=== PATIENT | female | born 1935 | race Caucasian/White ===

== ENCOUNTER 2017-06-06 11:18 | Outpatient (CLI) | payer MEDICARE | END 2017-06-06 11:19 | disposition home or self-care (01) | LOC: BICMAMMO 11:18 | PROVIDERS: ATTEND Internal Medicine | DX: Z12.31 Encounter for screening mammogram for malignant neoplasm of breast (principal); Z85.038 Personal history of other malignant neoplasm of large intestine | CPT/HCPCS: 77063; 77067 ==

== ENCOUNTER 2017-10-06 10:27 | Emergency (ER) | payer MEDICARE ==
[2017-10-06 11:29] LABS: Bilirubin Negative (Negative); Blood, Urine Small (Negative); Clarity CLEAR (Clear); Glucose, Urine (Dipstick) Negative (Negative); Leukocyte Trace (Negative); Nitrite Negative (Negative); Protein, Urine (Dipstick) Negative (Neg-Trace); Urobilinogen 0.2 mg/dL (0.2-1.0)
[2017-10-06 11:31] LABS: Anion Gap 12 mmol/L (10-20); BUN (Urea Nitrogen) 16 mg/dL (9.8-20.1); Calc. Creatinine Clearance 0 mL/min (70-130); Calcium 9.4 mg/dL (7.8-10.44); Carbon Dioxide 26 mmol/L (23-31); Chloride 97 mmol/L (98-107); Estimated GFR-MDRD 66; Glucose 129 mg/dL (83-110); Potassium 4.3 mmol/L (3.5-5.1); Sodium 131 mmol/L (136-145)
[2017-10-06 11:38] LABS: Bacteria/HPF 1+ HPF (None Seen); Hyaline Casts/LPF NONE SEEN LPF (0-3 Hyaline); Squamous Epithelial 0-3 HPF (0-3)
== END 2017-10-06 11:43 | disposition home or self-care (01) ==
LOC: ERS 10:27
DX: R33.9 Retention of urine, unspecified (principal); I10 Essential (primary) hypertension; Z79.899 Other long term (current) drug therapy
CPT/HCPCS: 36415; 51701; 80048; 81003; 81015

== ENCOUNTER 2017-12-07 10:51 | Outpatient (CLI) | payer MEDICARE ==
--- NOTE | 2017-12-07 14:02 | RAD ---
LUMBAR SPINE BENDING FOUR VIEWS: History: 82-year-old female with history of low back pain, lumbar radiculopathy. Exam includes standing flexion and extension lateral views. FINDINGS: There is S-shaped scoliosis of the lumbar vertebral column, convex to the left side superiorly and co nvex to the right side inferiorly with extensive multilevel disc osteophytosis and some generalized f acet arthrosis. There is approximately 1 cm of anterolisthesis of L4 on L5 without abnormal translati on between flexion and extension. No fracture of dislocation. No compression injury. No focal bone le santy. IMPRESSION: Spondylosis and scoliosis with approximately 1 cm anterolisthesis of L4 on L5 without significant abn ormal translation between flexion and extension. POS: [facility]
== END 2017-12-07 10:52 | disposition home or self-care (01) ==
LOC: TBSIIMAG 10:51
PROVIDERS: ATTEND Surgery
DX: M54.5 Low back pain (principal); M47.896 Other spondylosis, lumbar region; M41.9 Scoliosis, unspecified; M43.16 Spondylolisthesis, lumbar region
CPT/HCPCS: 72120

== ENCOUNTER 2018-01-09 10:26 | Observation (INO) | payer MEDICARE ==
--- NOTE | 2018-01-09 13:04 | RAD ---
PORTABLE CHEST: HISTORY: The patient is status post multiple falls, chronic back pain. FINDINGS: Heart size appears borderline considering apical lordotic technique. Mediastinal structures were unr emarkable. There are atherosclerotic changes of the aorta. The lungs are clear of infiltrates. The re are arthritic changes of both shoulders. The bones are demineralized. IMPRESSION: Borderline heart size. POS: [facility]
--- NOTE | 2018-01-09 13:05 | RAD ---
AP PELVIS: HISTORY: Fall with back and pelvic pain. FINDINGS: Arthritic changes of the lower lumbar spine are seen. A right hip prosthesis I partially visualized. Bony pelvic ring appears intact. No definite signs of fracture. If there is strong suspicion of a sacral fracture, CT would be recommended. IMPRESSION: No evidence of acute injury. POS: [facility]
[2018-01-09 13:15] LABS: Bilirubin Negative (Negative); Blood, Urine Negative (Negative); Clarity CLOUDY (Clear); Glucose, Urine (Dipstick) Negative (Negative); Leukocyte Large (Negative); Nitrite Negative (Negative); Protein, Urine (Dipstick) Negative (Neg-Trace); Specific Gravity, Urine 1.006 (1.002-1.036); Urobilinogen 0.2 mg/dL (0.2-1.0); pH, Urine 7.5 (5.0-9.0)
--- NOTE | 2018-01-09 13:18 | CT ---
CT OF LUMBAR SPINE PERFORMED WITHOUT CONTRAST ENHANCEMENT: History: Patient fell last week and complains of lower back and buttocks pain and bilateral leg pain. FINDINGS: The bones appear demineralized. There is severe disc narrowing at the L3-4 level. There is a grade I spondylolisthesis of L4 on L5 of approximately 5 mm with associated degenerative facet changes. There is no significant periaortic adenopathy and the visualized portions of the kidneys are unremarkable. Arthritic changes of both SI joints are seen. I do not appreciate any evidence for a sacral fracture. There is some mild scoliotic change to the spine. T11-12: Unremarkable. T12-L1: Unremarkable. L1-2: There is a disc bulge at this level. There may be a small left paracentral protrusion present. There appears to be a mild to moderate degree of canal narrowing. L2-3: Disc bulge, facet and ligamentous hypertrophic changes associated with a moderate degree of can al narrowing. L3-4: Moderately severe canal narrowing with degenerative facet and ligamentous hypertrophic changes in conjunction with disc bulging noted. L4-5: Moderately severe canal stenosis seen related to the degenerative facet and ligamentous hypertr ophic changes. L5-S1: Calcification of the posterior annulus fibers are present. I do not appreciate significant can al or foraminal stenosis. IMPRESSION: 1. No evidence of any acute compression injury. 2. Areas of multilevel canal stenosis as discussed above. POS: [facility]
[2018-01-09 13:19] LABS: Bacteria/HPF Rare-Few HPF (None Seen); Hyaline Casts/LPF 4-6 HYALINE CAST LPF (0-3 Hyaline); RBC/HPF 0-3 HPF (0-3); Squamous Epithelial 0-3 HPF (0-3)
[2018-01-09 13:20] LABS: ALT (SGPT) 17 U/L (8-55); AST (SGOT) 20 U/L (5-34); Albumin 3.9 g/dL (3.4-4.8); Alkaline Phosphatase 76 U/L (40-150); Anion Gap 11 mmol/L (10-20); BUN (Urea Nitrogen) 10 mg/dL (9.8-20.1); Bilirubin, Total 0.6 mg/dL (0.2-1.2); CK (CPK) 132 U/L (29-168); Calc. Creatinine Clearance 0 mL/min (70-130); Calcium 9.2 mg/dL (7.8-10.44); Carbon Dioxide 25 mmol/L (23-31); Chloride 94 mmol/L (98-107); Estimated GFR-MDRD 78; Globulin 3.1 g/dL (2.4-3.5); Glucose 117 mg/dL (83-110); Lipase 12 U/L (8-78); Sodium 126 mmol/L (136-145)
[2018-01-09 13:21] LABS: #Monocytes 0.5 thou/uL (0.11-0.59); %Basophils 0.6 % (0.0-1.0); %Eosinophils 0.7 % (0.0-10.0); %Lymphocytes 17.5 % (21.0-51.0); %Monocytes 8.8 % (0.0-10.0); %Neutrophils 72.4 % (42.0-75.0); Hemoglobin 12.3 g/dL (12.0-16.0); Mean Corpuscular HGB CONC 34.7 g/dL (32.0-36.0); Mean Corpuscular Hemoglobin 32.3 pg (27.0-31.0); Mean Platelet Volume 6.3 fL (7.4-10.4); Platelet Count 258 thou/uL (130-400); RBC Distribution Width 12.4 % (11.5-14.5); White Blood Cell (WBC) Count 5.5 thou/uL (4.8-10.8)
[2018-01-09 13:25] LABS: CKMB 2.4 ng/mL (0-6.6); Troponin I Less than 0.010 ng/mL (< 0.028)
[2018-01-09] MEDS ORDERED: cefTRIAXone\\ROCEPHIN 2 GM VIAL ONE (14:12)
[2018-01-09] MEDS ORDERED: traMADol HCl 50 MG TAB PO PRN (16:22)
[2018-01-09] MEDS ORDERED: hydrALAZINE 20 MG/ML VIAL SLOW IVP PRN (16:22)
[2018-01-09] MEDS ORDERED: Acetaminophen 325 MG TAB PO PRN (16:22)
[2018-01-09] MEDS ORDERED: Mag-Al 1200 mg/1200 mg/30 ML UDCUP PO PRN (16:22)
[2018-01-09 16:31] VITALS: BMI 30.4
[2018-01-09] MEDS: Sodium Chloride 0.9% 1,000 ML IV SCH (17:49)
--- NOTE | 2018-01-09 17:54 | HP ---
PRIMARY CARE PHYSICIAN: Krysta Stone M.D. CHIEF COMPLAINT: Generalized weakness. HISTORY OF PRESENT ILLNESS: Ms. Henry is a very pleasant 82-year-old female that has a history of hy pertension as well as previous history of colon cancer. She was in her usual state of health until a bout a week ago when she had gone to the gym and says that she was walking by the door when somebody opened the door and hit her walker and she fell down hitting her head. She says she was bleeding fro m the head and was hurting bad on her right shoulder, but did not seek medical attention. She says t hat the ENT's had offered to bring her to the ER, but she refused. She says that she went home and t hen basically just laid in bed most of the time. Her son lives with her and says that she only would just get out to go to the kitchen or to the bathroom, but basically was in bed most of the day. She got progressively weaker as the days went by to the point where she was basically just getting into a wheelchair and scooting around and as a result, she came to the emergency room for evaluation. She denies any chest pain or difficulty breathing. No fevers or chills. No nausea, no vomiting, no altagracia rrhea. When she was in the ER, she had a CT scan of the pelvis and lumbar spine, there were no fract ures noted, but she did have significant lumbar disk disease and she was also found to have findings consistent with a urinary tract infection and sodium was low and she is being placed in observation f or that. REVIEW OF SYSTEMS: All systems were reviewed and are negative except for that mentioned in the histo ry of present illness. PAST MEDICAL HISTORY: Significant for hypertension, colon cancer, and polio. PAST SURGICAL HISTORY: She has had right knee surgery, left knee surgery, ovarian cyst, cataract dayna yue, and partial hysterectomy. SOCIAL HISTORY: She has 3 children. Her daughter, Jada Stack, is her medical power of customer orders clerk. uma is a nonsmoker. She occasionally drinks wine. She is and would like to be a FULL CODE. ALLERGIES: CELEBREX. She has bad reactions to MIDAZOLAM, FENTANYL and STEROIDS. FAMILY HISTORY: Significant for colon cancer. CURRENT MEDICATIONS: Include tramadol 50 mg q.6 hours as needed, lisinopril 10 mg daily, Lasix 20 mg twice a day, Claritin 10 mg daily, vitamin D3, multivitamin once a day, and aspirin 81 mg a day. PHYSICAL EXAMINATION: GENERAL: She is alert and oriented. She appears to be in no acute distress. VITAL SIGNS: Blood pressure was 151/87, heart rate 77, respiratory rate of 18, temperature is 97.8. HEENT: Pupils are equal, round, and reactive. Extraocular muscles are intact. Her sclerae are anic teric. Throat: There is no erythema, no exudates. NECK: No adenopathy, no bruits. LUNGS: Clear to auscultation. There is no wheezing, no rales. CARDIOVASCULAR: She had a normal S1, S2. There is no S3 or S4. No murmurs, clicks or rubs. ABDOMEN: Soft, it is nontender, nondistended. Positive for bowel sounds. There is no rebound or gu arding. EXTREMITIES: There is no edema. She did have some varicose veins. NEUROLOGIC: She did have a slight weakness on the left lower extremity, but she is able to lift her leg against resistance. She is able to dorsiflex and plantarflex both feet. LABORATORY DATA: Sodium was 126, potassium 4.0, chloride is 94, CO2 is 25, BUN of 10, creatinine 0.7 2, glucose is 117. White blood cell count 5.5, hemoglobin 12.3, hematocrit is 35.3, platelet count i s 258. ASSESSMENT AND PLAN: 1. This is a pleasant 82-year-old female that presents to the ER with progressive generalized weakne ss. This is likely multifactorial, likely as a result of the fall with an exacerbation of degenerati ve joint disease in the setting of her advanced age as well as urinary tract infection and mild hypon atremia. She will be placed in observation. Urine cultures have already been done in the ER. We wi ll place her on Rocephin IV for the urinary tract infection, pending cultures. 2. For the hyponatremia, place her on saline infusion. However, in review of her records, it appear s as if her sodium tends to run on the lower side as far back as 2012 where we have records never bee n in the normal range and on average it looks to be about 132. 3. Hypertension. We will hold off on her lisinopril for now, treated with p.r.n. hydralazine. This can be restarted in the a.m. 4. Generalized weakness. She will be reassessed in the a.m., but I suspect it is going to take parul ral days to maybe several weeks to bring her back to her baseline. For this reason, we will go ahead and place an inpatient rehabilitation screen.
[2018-01-09] MEDS: HYDROcodone/Acetaminophen 5/325 mg Tablet PO PRN ×2 (20:04→23:36)
[2018-01-10] MEDS: Sodium Chloride 0.9% 1,000 ML IV SCH ×4 (02:05→21:23)
[2018-01-10 05:03] LABS: #Eosinphils 0.1 thou/uL (0.0-0.7); #Monocytes 0.6 thou/uL (0.11-0.59); %Basophils 0.3 % (0.0-1.0); %Eosinophils 2.7 % (0.0-10.0); %Lymphocytes 21.8 % (21.0-51.0); %Monocytes 11.7 % (0.0-10.0); %Neutrophils 63.4 % (42.0-75.0); Hemoglobin 11.3 g/dL (12.0-16.0); Mean Corpuscular HGB CONC 34.7 g/dL (32.0-36.0); Mean Corpuscular Hemoglobin 32.5 pg (27.0-31.0); Mean Corpuscular Volume 93.6 fL (78.0-98.0); Mean Platelet Volume 6.4 fL (7.4-10.4); Platelet Count 230 thou/uL (130-400); RBC Distribution Width 12.6 % (11.5-14.5); Red Blood Cell (RBC) Count 3.49 mill/uL (4.20-5.40); White Blood Cell (WBC) Count 4.7 thou/uL (4.8-10.8)
[2018-01-10 05:24] LABS: Anion Gap 9 mmol/L (10-20); BUN (Urea Nitrogen) 8 mg/dL (9.8-20.1); Calc. Creatinine Clearance 76 mL/min (70-130); Calcium 8.6 mg/dL (7.8-10.44); Carbon Dioxide 25 mmol/L (23-31); Chloride 100 mmol/L (98-107); Estimated GFR-MDRD 84; Glucose 95 mg/dL (83-110); Potassium 3.9 mmol/L (3.5-5.1); Sodium 130 mmol/L (136-145)
[2018-01-10] MEDS: HYDROcodone/Acetaminophen 5/325 mg Tablet PO PRN ×3 (07:57→21:23)
[2018-01-10] MEDS: Enoxaparin Sodium 40 MG/0.4 ML SYRINGE SC SCH (07:59)
[2018-01-10] MEDS ORDERED: hydrALAZINE 25 MG TAB PO SCH (14:00)
[2018-01-10] MEDS: cefTRIAXone\\ROCEPHIN 1 GM in Sodium Chloride 0.9% 100 ML IVPB SCH (14:01)
--- NOTE | 2018-01-10 15:15 | PDOC.PN ---
- Subjective Encounter Start Date: 01/10/18 Encounter Start Time: 15:13 Ms. Henry was seen today in follow-up. She says she is feeling much better. I was in the room when she got up and went to the bedside commode. She needed minimal assistance. - Objective Resuscitation Status: Resuscitation Status FULL:Full Resuscitation MAR Reviewed: Yes Vital Signs & Weight: Vital Signs (12 hours) Temp Pulse Resp BP Pulse Ox 01/10/18 14:00 84 01/10/18 12:03 97.5 F L 84 18 181/83 H 01/10/18 07:18 97.8 F 62 16 169/89 H 97 01/10/18 07:04 97.8 F 64 12 Weight Weight 160 lb 14.4 oz I&O: 01/09/18 01/10/18 01/11/18 06:59 06:59 06:59 Intake Total 1000 Balance 1000 Result Diagrams: 01/10/18 04:36 01/10/18 04:36 Phys Exam - Physical Examination HEENT: PERRLA Respiratory: no wheezing, no rales, no rhonchi, clear to auscultation bilateral Cardiovascular: RRR, no significant murmur, no rub Gastrointestinal: soft, non-tender, no distention, positive bowel sounds Musculoskeletal: no edema Dx/Plan (1) Hyponatremia Code(s): E87.1 - HYPO-OSMOLALITY AND HYPONATREMIA Status: Acute (2) Generalized weakness Code(s): R53.1 - WEAKNESS Status: Acute (3) UTI (urinary tract infection) Status: Acute - Plan * Generalized weakness has improved * Hyponatremia- improved * UTI- continue Rocephin, urine culture results are pending * Continue PT/OT * Anticipate discharge home tomorrow.
[2018-01-10] MEDS: hydrALAZINE 25 MG TAB PO SCH (19:45)
[2018-01-11] MEDS: HYDROcodone/Acetaminophen 5/325 mg Tablet PO PRN ×3 (04:11→17:04)
[2018-01-11] MEDS: Sodium Chloride 0.9% 1,000 ML IV SCH ×2 (04:16→12:14)
[2018-01-11 05:39] LABS: Anion Gap 12 mmol/L (10-20); BUN (Urea Nitrogen) 8 mg/dL (9.8-20.1); Calc. Creatinine Clearance 74 mL/min (70-130); Carbon Dioxide 22 mmol/L (23-31); Chloride 103 mmol/L (98-107); Estimated GFR-MDRD 82; Glucose 102 mg/dL (83-110); Potassium 4.1 mmol/L (3.5-5.1); Sodium 133 mmol/L (136-145)
[2018-01-11] MEDS: hydrALAZINE 25 MG TAB PO SCH ×3 (08:00→20:20)
[2018-01-11] MEDS: Enoxaparin Sodium 40 MG/0.4 ML SYRINGE SC SCH (08:00)
[2018-01-11] MEDS: Loratadine 10 MG TAB PO SCH (08:00)
--- NOTE | 2018-01-11 11:26 | PDOC.PN ---
- Subjective Encounter Start Date: 01/11/18 Encounter Start Time: 11:24 Ms. Henry was seen today in follow-up of Generalized weakness. She feels better. She walked with therapy this morning. - Objective Resuscitation Status: Resuscitation Status FULL:Full Resuscitation MAR Reviewed: Yes Vital Signs & Weight: Vital Signs (12 hours) Temp Pulse Resp BP BP Pulse Ox 01/11/18 08:00 98.1 F 68 18 171/99 H 01/11/18 07:10 98.1 F 68 18 171/99 H 94 L 01/11/18 04:00 97.5 F L 75 16 165/93 H 97 Weight Weight 160 lb 14.4 oz I&O: 01/10/18 01/11/18 01/12/18 06:59 06:59 06:59 Intake Total 1000 3000 Balance 1000 3000 Result Diagrams: 01/10/18 04:36 01/11/18 04:23 Phys Exam - Physical Examination HEENT: PERRLA Respiratory: no wheezing, no rales, no rhonchi, clear to auscultation bilateral Cardiovascular: RRR, no significant murmur, no rub Gastrointestinal: soft, non-tender, no distention, positive bowel sounds Musculoskeletal: no edema Dx/Plan (1) Hyponatremia Code(s): E87.1 - HYPO-OSMOLALITY AND HYPONATREMIA Status: Acute (2) Generalized weakness Code(s): R53.1 - WEAKNESS Status: Acute (3) UTI (urinary tract infection) Status: Acute (4) Hypertension Code(s): I10 - ESSENTIAL (PRIMARY) HYPERTENSION Status: Chronic - Plan * Hyponatremia- serum sodium has improved and the weakness has as well with hydration- will decrease IV fluid rate- and consider stopping fluids tomorrow * UTI- urine culture is positive for E. Coli which is conroy-sensitive- will continue Rocephin today, and then consider transition to oral antibiotics in the next day or two * Generalized weakness- continue PT/OT- I spoke with the Physical Therapist, and he recommends Rehab, as she is still fairly weak, and unstable, and could benefit from some training and strengthening. * HTN- blood pressure is elevated- will start Hydralazine temporarily while in the hospital- ( Lasix and Lisinopril are on hold due to volume depletion)- these can be re-started in a day or so
[2018-01-11] MEDS: cefTRIAXone\\ROCEPHIN 1 GM in Sodium Chloride 0.9% 100 ML IVPB SCH (14:12)
[2018-01-12] MEDS: HYDROcodone/Acetaminophen 5/325 mg Tablet PO PRN ×3 (00:55→19:57)
[2018-01-12 04:47] LABS: Anion Gap 13 mmol/L (10-20); BUN (Urea Nitrogen) 8 mg/dL (9.8-20.1); Calc. Creatinine Clearance 77 mL/min (70-130); Calcium 8.7 mg/dL (7.8-10.44); Carbon Dioxide 21 mmol/L (23-31); Chloride 103 mmol/L (98-107); Estimated GFR-MDRD 86; Glucose 97 mg/dL (83-110); Potassium 3.6 mmol/L (3.5-5.1); Sodium 133 mmol/L (136-145)
[2018-01-12] MEDS: Sodium Chloride 0.9% 1,000 ML IV SCH ×2 (05:00→23:34)
[2018-01-12] MEDS: Loratadine 10 MG TAB PO SCH (08:14)
[2018-01-12] MEDS: hydrALAZINE 25 MG TAB PO SCH ×3 (08:16→19:57)
[2018-01-12] MEDS: Enoxaparin Sodium 40 MG/0.4 ML SYRINGE SC SCH (08:17)
[2018-01-12] MEDS ORDERED: Bisacodyl 5 MG TAB PO PRN (08:55)
[2018-01-12] MEDS ORDERED: Bisacodyl 5 MG TAB PO SCH (09:15)
--- NOTE | 2018-01-12 13:50 | PDOC.PN ---
- Subjective Encounter Start Date: 01/12/18 Encounter Start Time: 09:20 Pt seen for followup re: hyponatremia. Feels better. c/o constipation. No fevers or chills. - Objective Resuscitation Status: Resuscitation Status FULL:Full Resuscitation Vital Signs & Weight: Vital Signs (12 hours) Temp Pulse Resp BP BP Pulse Ox 01/12/18 08:16 72 106/80 01/12/18 08:00 97.4 F L 72 16 01/12/18 07:05 97.4 F L 72 16 176/111 H 96 01/12/18 04:39 97.6 F 64 16 172/97 H 100 Weight Weight 160 lb 14.4 oz I&O: 01/11/18 01/12/18 01/13/18 06:59 06:59 06:59 Intake Total 3000 1000 Balance 3000 1000 Result Diagrams: 01/10/18 04:36 01/12/18 03:27 Phys Exam - Physical Examination Constitutional: NAD HEENT: moist MMs Neck: supple Respiratory: clear to auscultation bilateral Cardiovascular: RRR Gastrointestinal: soft Neurological: moves all 4 limbs Psychiatric: normal affect Dx/Plan (1) Hyponatremia Code(s): E87.1 - HYPO-OSMOLALITY AND HYPONATREMIA Status: Acute Comment: Improved, recheck labs. (2) Generalized weakness Code(s): R53.1 - WEAKNESS Status: Acute Comment: Ambulate patient (3) UTI (urinary tract infection) Status: Acute Comment: start macrobid, discontinue ceftriaxone (4) Constipation Code(s): K59.00 - CONSTIPATION, UNSPECIFIED Status: Acute Comment: trial Dulcolax (5) Hypertension Code(s): I10 - ESSENTIAL (PRIMARY) HYPERTENSION Status: Chronic Comment: resume furosemide and lisinopril, monitor vital signs and titrate antihypertensives as needed - Plan * . Review of Systems - Review of Systems Respiratory: negative: Cough, Shortness of Breath, SOB with Excertion, Pleuritic Pain, Wheezing Cardiovascular: negative: chest pain, palpitations, orthopnea, paroxysmal nocturnal dyspnea, edema, light headedness Gastrointestinal: Constipation - Medications/Allergies Allergies/Adverse Reactions: Allergies Allergy/AdvReac Type Severity Reaction Status Date / Time celecoxib Allergy Verified 01/09/18 16:34 fentanyl Allergy Verified 01/09/18 16:34 midazolam Allergy Verified 01/09/18 16:34 Medications: Current Medications Acetaminophen (Tylenol) 650 mg PO Q4H PRN PRN Reason: Headache/Fever or Pain Hydrocodone Bitart/Acetaminophen ([place] 5/325) 1 tab PO Q4H PRN PRN Reason: Moderate Pain (4-6) Last Admin: 01/12/18 14:00 Dose: 1 tab Al Hydroxide/Mg Hydroxide (Maalox) 30 ml PO Q6H PRN PRN Reason: Heartburn or Indigestion Aspirin (Aspirin Chewable) 81 mg PO DAILY [facility] Last Admin: 01/12/18 08:14 Dose: 81 mg Bisacodyl (Dulcolax) 10 mg PO DAILYPRN PRN PRN Reason: Constipation Cholecalciferol (Vitamin D3) 1,000 units PO DAILY [facility] Last Admin: 01/12/18 08:14 Dose: 1,000 units Enoxaparin Sodium (Lovenox) 40 mg SC 0900 [facility] Last Admin: 01/12/18 08:17 Dose: Not Given Furosemide (Lasix) 20 mg PO BID [facility] Hydralazine HCl (Apresoline) 10 mg SLOW IVP Q4H PRN PRN Reason: Systolic BP > 180 Hydralazine HCl (Apresoline) 25 mg PO TID [facility] Last Admin: 01/12/18 14:00 Dose: 25 mg Sodium Chloride (Normal Saline 0.9%) 1,000 mls @ 60 mls/hr IV .[id number] [facility] Last Admin: 01/12/18 05:00 Dose: 1,000 mls Lisinopril (Zestril) 10 mg PO DAILY [facility] Loratadine (Claritin) 10 mg PO DAILY [facility] Last Admin: 01/12/18 08:14 Dose: 10 mg Nitrofurantoin Macrocrystals (Macrobid) 100 mg PO BID [facility] Sodium Chloride (Flush - Normal Saline) 10 ml IVF Q12HR [facility] Last Admin: 01/12/18 08:17 Dose: Not Given Sodium Chloride (Flush - Normal Saline) 10 ml IVF PRN PRN PRN Reason: Saline Flush
[2018-01-12 14:14] LABS: #Eosinphils 0.1 thou/uL (0.0-0.7); #Monocytes 0.5 thou/uL (0.11-0.59); #Neutrophils 3.5 thou/uL (1.40-6.50); %Basophils 0.5 % (0.0-1.0); %Eosinophils 2.7 % (0.0-10.0); %Lymphocytes 18.6 % (21.0-51.0); %Monocytes 9.6 % (0.0-10.0); %Neutrophils 68.6 % (42.0-75.0); Hemoglobin 11.9 g/dL (12.0-16.0); Mean Corpuscular HGB CONC 34.2 g/dL (32.0-36.0); Mean Corpuscular Hemoglobin 32.6 pg (27.0-31.0); Mean Corpuscular Volume 95.1 fL (78.0-98.0); Mean Platelet Volume 6.5 fL (7.4-10.4); Platelet Count 255 thou/uL (130-400); RBC Distribution Width 12.4 % (11.5-14.5); Red Blood Cell (RBC) Count 3.65 mill/uL (4.20-5.40); White Blood Cell (WBC) Count 5.2 thou/uL (4.8-10.8)
[2018-01-12 14:32] LABS: Anion Gap 11 mmol/L (10-20); BUN (Urea Nitrogen) 8 mg/dL (9.8-20.1); Calc. Creatinine Clearance 67 mL/min (70-130); Calcium 8.9 mg/dL (7.8-10.44); Carbon Dioxide 25 mmol/L (23-31); Chloride 100 mmol/L (98-107); Estimated GFR-MDRD 73; Glucose 148 mg/dL (83-110); Potassium 3.9 mmol/L (3.5-5.1); Sodium 132 mmol/L (136-145)
[2018-01-12] MEDS: Furosemide 20 MG TAB PO SCH (19:57)
[2018-01-12] MEDS: Nitrofurantoin Monohyd/M-Cryst 100 MG CAP PO SCH (19:58)
[2018-01-13 05:12] LABS: #Basophils 0.1 thou/uL (0.0-0.2); #Eosinphils 0.2 thou/uL (0.0-0.7); #Monocytes 0.6 thou/uL (0.11-0.59); %Eosinophils 3.7 % (0.0-10.0); %Lymphocytes 21.3 % (21.0-51.0); %Monocytes 11.7 % (0.0-10.0); %Neutrophils 62.2 % (42.0-75.0); Hemoglobin 11.4 g/dL (12.0-16.0); Mean Corpuscular HGB CONC 35.1 g/dL (32.0-36.0); Mean Corpuscular Hemoglobin 32.9 pg (27.0-31.0); Mean Corpuscular Volume 93.6 fL (78.0-98.0); Mean Platelet Volume 6.8 fL (7.4-10.4); Platelet Count 244 thou/uL (130-400); RBC Distribution Width 12.6 % (11.5-14.5); Red Blood Cell (RBC) Count 3.47 mill/uL (4.20-5.40); White Blood Cell (WBC) Count 4.9 thou/uL (4.8-10.8)
[2018-01-13 05:39] LABS: Anion Gap 11 mmol/L (10-20); BUN (Urea Nitrogen) 9 mg/dL (9.8-20.1); Calc. Creatinine Clearance 74 mL/min (70-130); Calcium 8.8 mg/dL (7.8-10.44); Carbon Dioxide 23 mmol/L (23-31); Chloride 101 mmol/L (98-107); Estimated GFR-MDRD 82; Glucose 105 mg/dL (83-110); Potassium 3.5 mmol/L (3.5-5.1); Sodium 131 mmol/L (136-145)
[2018-01-13] MEDS: Enoxaparin Sodium 40 MG/0.4 ML SYRINGE SC SCH (07:40)
[2018-01-13] MEDS: Loratadine 10 MG TAB PO SCH (07:41)
[2018-01-13] MEDS: Lisinopril 10 MG TAB PO SCH (07:41)
[2018-01-13] MEDS: Nitrofurantoin Monohyd/M-Cryst 100 MG CAP PO SCH ×2 (07:41→21:02)
[2018-01-13] MEDS: Furosemide 20 MG TAB PO SCH ×2 (07:42→21:02)
[2018-01-13] MEDS: hydrALAZINE 25 MG TAB PO SCH ×3 (07:42→21:01)
[2018-01-13] MEDS: HYDROcodone/Acetaminophen 5/325 mg Tablet PO PRN ×3 (09:16→18:56)
--- NOTE | 2018-01-13 13:23 | PDOC.PN ---
- Subjective Encounter Start Date: 01/13/18 Encounter Start Time: 09:00 Pt sen for followup re: hyponatremia. feels better. No chest pain, fever or shortness of breath. - Objective Resuscitation Status: Resuscitation Status FULL:Full Resuscitation MAR Reviewed: Yes Vital Signs & Weight: Vital Signs (12 hours) Temp Pulse Resp BP BP BP Pulse Ox 01/13/18 08:19 97.8 F 66 16 171/97 H 97 01/13/18 08:00 97.8 F 66 16 01/13/18 07:42 75 01/13/18 07:41 164/95 H 01/13/18 04:21 98.2 F 75 16 164/95 H 93 L Weight Weight 160 lb 14.4 oz I&O: 01/12/18 01/13/18 01/14/18 06:59 06:59 06:59 Intake Total 1000 1200 Balance 1000 1200 Result Diagrams: 01/13/18 04:05 01/13/18 04:05 Dx/Plan (1) Hyponatremia Code(s): E87.1 - HYPO-OSMOLALITY AND HYPONATREMIA Status: Acute Comment: Improved, sodium 131 today (2) Generalized weakness Code(s): R53.1 - WEAKNESS Status: Acute Comment: mobilize patient (3) UTI (urinary tract infection) Status: Acute Comment: continue macrobid (4) Hypertension Code(s): I10 - ESSENTIAL (PRIMARY) HYPERTENSION Status: Chronic Comment: monitor vital signs and titrate antihypertensives as needed (5) Constipation Code(s): K59.00 - CONSTIPATION, UNSPECIFIED Status: Resolved - Plan * . Review of Systems - Review of Systems Cardiovascular: negative: chest pain, palpitations, orthopnea, paroxysmal nocturnal dyspnea, edema, light headedness Gastrointestinal: negative: Nausea, Abdominal Pain, Constipation, Melena, Hematochezia - Medications/Allergies Allergies/Adverse Reactions: Allergies Allergy/AdvReac Type Severity Reaction Status Date / Time celecoxib Allergy Verified 01/09/18 16:34 fentanyl Allergy Verified 01/09/18 16:34 midazolam Allergy Verified 01/09/18 16:34 Medications: Current Medications Acetaminophen (Tylenol) 650 mg PO Q4H PRN PRN Reason: Headache/Fever or Pain Hydrocodone Bitart/Acetaminophen ([place] 5/325) 1 tab PO Q4H PRN PRN Reason: Moderate Pain (4-6) Last Admin: 01/13/18 09:16 Dose: 1 tab Al Hydroxide/Mg Hydroxide (Maalox) 30 ml PO Q6H PRN PRN Reason: Heartburn or Indigestion Aspirin (Aspirin Chewable) 81 mg PO DAILY [facility] Last Admin: 01/13/18 07:42 Dose: 81 mg Bisacodyl (Dulcolax) 10 mg PO DAILYPRN PRN PRN Reason: Constipation Cholecalciferol (Vitamin D3) 1,000 units PO DAILY [facility] Last Admin: 01/13/18 07:41 Dose: 1,000 units Enoxaparin Sodium (Lovenox) 40 mg SC 0900 [facility] Last Admin: 01/13/18 07:40 Dose: 40 mg Furosemide (Lasix) 20 mg PO BID [facility] Last Admin: 01/13/18 07:42 Dose: 20 mg Hydralazine HCl (Apresoline) 10 mg SLOW IVP Q4H PRN PRN Reason: Systolic BP > 180 Hydralazine HCl (Apresoline) 25 mg PO TID [facility] Last Admin: 01/13/18 07:42 Dose: 25 mg Sodium Chloride (Normal Saline 0.9%) 1,000 mls @ 60 mls/hr IV .[id number] [facility] Last Admin: 01/12/18 23:34 Dose: 1,000 mls Lisinopril (Zestril) 10 mg PO DAILY [facility] Last Admin: 01/13/18 07:41 Dose: 10 mg Loratadine (Claritin) 10 mg PO DAILY [facility] Last Admin: 01/13/18 07:41 Dose: 10 mg Nitrofurantoin Macrocrystals (Macrobid) 100 mg PO BID [facility] Last Admin: 01/13/18 07:41 Dose: 100 mg Sodium Chloride (Flush - Normal Saline) 10 ml IVF Q12HR [facility] Last Admin: 01/13/18 07:42 Dose: Not Given Sodium Chloride (Flush - Normal Saline) 10 ml IVF PRN PRN PRN Reason: Saline Flush
[2018-01-13] MEDS: Sodium Chloride 0.9% 1,000 ML IV SCH (14:21)
[2018-01-14] MEDS: HYDROcodone/Acetaminophen 5/325 mg Tablet PO PRN ×3 (00:38→19:37)
[2018-01-14 05:07] LABS: #Eosinphils 0.2 thou/uL (0.0-0.7); #Lymphocytes 1.3 thou/uL (1.20-3.40); #Monocytes 0.5 thou/uL (0.11-0.59); %Basophils 0.9 % (0.0-1.0); %Eosinophils 3.1 % (0.0-10.0); %Lymphocytes 26.3 % (21.0-51.0); %Monocytes 10.8 % (0.0-10.0); Hemoglobin 10.8 g/dL (12.0-16.0); Mean Corpuscular HGB CONC 33.8 g/dL (32.0-36.0); Mean Corpuscular Hemoglobin 31.5 pg (27.0-31.0); Mean Corpuscular Volume 93.4 fL (78.0-98.0); Mean Platelet Volume 6.3 fL (7.4-10.4); Platelet Count 242 thou/uL (130-400); RBC Distribution Width 12.4 % (11.5-14.5); Red Blood Cell (RBC) Count 3.44 mill/uL (4.20-5.40); White Blood Cell (WBC) Count 5.1 thou/uL (4.8-10.8)
[2018-01-14 05:24] LABS: Anion Gap 11 mmol/L (10-20); BUN (Urea Nitrogen) 12 mg/dL (9.8-20.1); Calc. Creatinine Clearance 71 mL/min (70-130); Calcium 8.9 mg/dL (7.8-10.44); Carbon Dioxide 26 mmol/L (23-31); Chloride 102 mmol/L (98-107); Estimated GFR-MDRD 78; Glucose 103 mg/dL (83-110); Potassium 3.6 mmol/L (3.5-5.1); Sodium 135 mmol/L (136-145)
[2018-01-14] MEDS: Sodium Chloride 0.9% 1,000 ML IV SCH (06:24)
[2018-01-14] MEDS: hydrALAZINE 25 MG TAB PO SCH ×3 (08:23→20:44)
[2018-01-14] MEDS: Furosemide 20 MG TAB PO SCH ×2 (08:23→20:41)
[2018-01-14] MEDS: Loratadine 10 MG TAB PO SCH (08:23)
[2018-01-14] MEDS: Lisinopril 10 MG TAB PO SCH (08:23)
[2018-01-14] MEDS: Enoxaparin Sodium 40 MG/0.4 ML SYRINGE SC SCH (08:24)
[2018-01-14] MEDS: Nitrofurantoin Monohyd/M-Cryst 100 MG CAP PO SCH ×2 (08:32→20:48)
--- NOTE | 2018-01-14 13:24 | PDOC.PN ---
- Subjective Encounter Start Date: 01/14/18 Encounter Start Time: 08:00 Pt seen for followup re: hyponatremia. c/o neuropathic pain, no other complaints. - Objective Resuscitation Status: Resuscitation Status FULL:Full Resuscitation MAR Reviewed: Yes Vital Signs & Weight: Vital Signs (12 hours) Temp Pulse Resp BP BP BP Pulse Ox 01/14/18 11:16 97.7 F 70 18 169/93 H 96 01/14/18 11:13 97.7 F 70 18 169/93 H 96 01/14/18 08:36 97.6 F 73 18 01/14/18 08:23 60 176/91 H 01/14/18 08:05 97.5 F L 57 L 16 176/91 H 96 01/14/18 04:10 97.6 F 73 18 167/78 H 95 Weight Weight 160 lb 14.4 oz I&O: 01/13/18 01/14/18 01/15/18 06:59 06:59 06:59 Intake Total 1200 1200 Balance 1200 1200 Result Diagrams: 01/14/18 04:46 01/14/18 04:46 Additional Labs: labs reviewed by me Phys Exam - Physical Examination Constitutional: NAD HEENT: moist MMs Neck: supple Respiratory: clear to auscultation bilateral Cardiovascular: RRR Gastrointestinal: soft Neurological: moves all 4 limbs Psychiatric: normal affect Dx/Plan (1) Hyponatremia Code(s): E87.1 - HYPO-OSMOLALITY AND HYPONATREMIA Status: Acute Comment: almost resolved, sodium 135 today (2) Generalized weakness Code(s): R53.1 - WEAKNESS Status: Acute Comment: pt awaiting insurance authorization for inpatient rehab for physical deconditioning (3) UTI (urinary tract infection) Status: Acute Comment: continue macrobid (4) Hypertension Code(s): I10 - ESSENTIAL (PRIMARY) HYPERTENSION Status: Chronic Comment: BP still high, start amlodipine (5) Constipation Code(s): K59.00 - CONSTIPATION, UNSPECIFIED Status: Resolved - Plan continue antibiotics, PT/OT, out of bed/ambulate * . Trial gabapentin for neuropathic pain, benefits, risks and side effects discussed with patient Review of Systems - Review of Systems Respiratory: negative: Cough, Dry, Shortness of Breath, Hemoptysis, SOB with Excertion, Pleuritic Pain, Sputum, Wheezing Cardiovascular: negative: chest pain, palpitations, orthopnea, paroxysmal nocturnal dyspnea, edema, light headedness - Medications/Allergies Allergies/Adverse Reactions: Allergies Allergy/AdvReac Type Severity Reaction Status Date / Time celecoxib Allergy Verified 01/09/18 16:34 fentanyl Allergy Verified 01/09/18 16:34 midazolam Allergy Verified 01/09/18 16:34 Medications: Current Medications Acetaminophen (Tylenol) 650 mg PO Q4H PRN PRN Reason: Headache/Fever or Pain Hydrocodone Bitart/Acetaminophen ([place] 5/325) 1 tab PO Q4H PRN PRN Reason: Moderate Pain (4-6) Last Admin: 01/14/18 06:47 Dose: 1 tab Al Hydroxide/Mg Hydroxide (Maalox) 30 ml PO Q6H PRN PRN Reason: Heartburn or Indigestion Aspirin (Aspirin Chewable) 81 mg PO DAILY [facility] Last Admin: 01/14/18 08:23 Dose: 81 mg Bisacodyl (Dulcolax) 10 mg PO DAILYPRN PRN PRN Reason: Constipation Cholecalciferol (Vitamin D3) 1,000 units PO DAILY [facility] Last Admin: 01/14/18 08:23 Dose: 1,000 units Enoxaparin Sodium (Lovenox) 40 mg SC 0900 [facility] Last Admin: 01/14/18 08:24 Dose: 40 mg Furosemide (Lasix) 20 mg PO BID [facility] Last Admin: 01/14/18 08:23 Dose: 20 mg Gabapentin (Neurontin) 100 mg PO HS [facility] Hydralazine HCl (Apresoline) 10 mg SLOW IVP Q4H PRN PRN Reason: Systolic BP > 180 Hydralazine HCl (Apresoline) 25 mg PO TID [facility] Last Admin: 01/14/18 08:23 Dose: 25 mg Sodium Chloride (Normal Saline 0.9%) 1,000 mls @ 60 mls/hr IV .[id number] [facility] Last Admin: 01/14/18 06:24 Dose: 1,000 mls Lisinopril (Zestril) 10 mg PO DAILY [facility] Last Admin: 01/14/18 08:23 Dose: 10 mg Loratadine (Claritin) 10 mg PO DAILY [facility] Last Admin: 01/14/18 08:23 Dose: 10 mg Nitrofurantoin Macrocrystals (Macrobid) 100 mg PO BID [facility] Last Admin: 01/14/18 08:32 Dose: 100 mg Sodium Chloride (Flush - Normal Saline) 10 ml IVF Q12HR [facility] Last Admin: 01/14/18 08:25 Dose: Not Given Sodium Chloride (Flush - Normal Saline) 10 ml IVF PRN PRN PRN Reason: Saline Flush
[2018-01-14] MEDS: Gabapentin 100 MG CAP PO SCH (20:41)
[2018-01-15] MEDS: Sodium Chloride 0.9% 1,000 ML IV SCH (00:20)
[2018-01-15] MEDS: HYDROcodone/Acetaminophen 5/325 mg Tablet PO PRN ×3 (05:54→20:28)
[2018-01-15] MEDS: Furosemide 20 MG TAB PO SCH ×2 (09:33→20:27)
[2018-01-15] MEDS: Nitrofurantoin Monohyd/M-Cryst 100 MG CAP PO SCH ×2 (09:33→20:30)
[2018-01-15] MEDS: Lisinopril 10 MG TAB PO SCH (09:33)
[2018-01-15] MEDS: hydrALAZINE 25 MG TAB PO SCH ×3 (09:33→20:28)
[2018-01-15] MEDS: Loratadine 10 MG TAB PO SCH (09:33)
[2018-01-15] MEDS: Enoxaparin Sodium 40 MG/0.4 ML SYRINGE SC SCH (09:34)
--- NOTE | 2018-01-15 18:09 | PDOC.PN ---
- Subjective Encounter Start Date: 01/15/18 Encounter Start Time: 08:30 Pt seen for followup re: hyponatremia. No complaints today. Slept well, gabapentin helped with pain. - Objective Resuscitation Status: Resuscitation Status FULL:Full Resuscitation MAR Reviewed: Yes Vital Signs & Weight: Vital Signs (12 hours) Temp Pulse Resp BP BP BP Pulse Ox 01/15/18 14:27 149/96 H 01/15/18 14:26 68 149/96 H 01/15/18 13:20 97.2 F L 68 18 155/99 H 96 01/15/18 13:19 97.2 F L 68 18 155/99 H 96 01/15/18 09:33 68 146/83 H 01/15/18 07:56 98.3 F 68 16 146/83 H 96 01/15/18 07:44 98.2 F 77 18 Weight Weight 160 lb 14.4 oz I&O: 01/14/18 01/15/18 01/16/18 06:59 06:59 06:59 Intake Total 1200 2000 Output Total 1600 Balance 1200 400 Result Diagrams: 01/14/18 04:46 01/14/18 04:46 Additional Labs: Labs reviewed by me Phys Exam - Physical Examination Obese HEENT: sclera anicteric Neck: full ROM Respiratory: clear to auscultation bilateral Cardiovascular: RRR Gastrointestinal: soft, non-tender Neurological: moves all 4 limbs Psychiatric: normal affect Dx/Plan (1) Hyponatremia Code(s): E87.1 - HYPO-OSMOLALITY AND HYPONATREMIA Status: Acute Comment: significantly improved (2) Generalized weakness Code(s): R53.1 - WEAKNESS Status: Acute Comment: pt awaiting insurance authorization for inpatient rehab (3) UTI (urinary tract infection) Status: Acute Comment: on macrobid (4) Hypertension Code(s): I10 - ESSENTIAL (PRIMARY) HYPERTENSION Status: Chronic Comment: Improved with amlodipine addition (5) Constipation Code(s): K59.00 - CONSTIPATION, UNSPECIFIED Status: Resolved - Plan * . Review of Systems - Review of Systems Constitutional: negative: fever, chills, sweats, weakness, malaise Respiratory: negative: Cough, Shortness of Breath, SOB with Excertion, Pleuritic Pain, Wheezing - Medications/Allergies Allergies/Adverse Reactions: Allergies Allergy/AdvReac Type Severity Reaction Status Date / Time celecoxib Allergy Verified 01/09/18 16:34 fentanyl Allergy Verified 01/09/18 16:34 midazolam Allergy Verified 01/09/18 16:34 Medications: Current Medications Acetaminophen (Tylenol) 650 mg PO Q4H PRN PRN Reason: Headache/Fever or Pain Hydrocodone Bitart/Acetaminophen (Hutchinson 5/325) 1 tab PO Q4H PRN PRN Reason: Moderate Pain (4-6) Last Admin: 01/15/18 14:25 Dose: 1 tab Al Hydroxide/Mg Hydroxide (Maalox) 30 ml PO Q6H PRN PRN Reason: Heartburn or Indigestion Aspirin (Aspirin Chewable) 81 mg PO DAILY [facility] Last Admin: 01/15/18 09:33 Dose: 81 mg Bisacodyl (Dulcolax) 10 mg PO DAILYPRN PRN PRN Reason: Constipation Cholecalciferol (Vitamin D3) 1,000 units PO DAILY [facility] Last Admin: 01/15/18 09:33 Dose: 1,000 units Enoxaparin Sodium (Lovenox) 40 mg SC 0900 [facility] Last Admin: 01/15/18 09:34 Dose: 40 mg Furosemide (Lasix) 20 mg PO BID [facility] Last Admin: 01/15/18 09:33 Dose: 20 mg Gabapentin (Neurontin) 100 mg PO HS [facility] Last Admin: 01/14/18 20:41 Dose: 100 mg Hydralazine HCl (Apresoline) 10 mg SLOW IVP Q4H PRN PRN Reason: Systolic BP > 180 Hydralazine HCl (Apresoline) 25 mg PO TID [facility] Last Admin: 01/15/18 14:26 Dose: 25 mg Lisinopril (Zestril) 10 mg PO DAILY [facility] Last Admin: 01/15/18 09:33 Dose: 10 mg Loratadine (Claritin) 10 mg PO DAILY [facility] Last Admin: 01/15/18 09:33 Dose: 10 mg Nitrofurantoin Macrocrystals (Macrobid) 100 mg PO BID [facility] Last Admin: 01/15/18 09:33 Dose: 100 mg Sodium Chloride (Flush - Normal Saline) 10 ml IVF Q12HR [facility] Last Admin: 01/15/18 09:34 Dose: Not Given Sodium Chloride (Flush - Normal Saline) 10 ml IVF PRN PRN PRN Reason: Saline Flush
[2018-01-15] MEDS: Gabapentin 100 MG CAP PO SCH (20:28)
[2018-01-16] MEDS: HYDROcodone/Acetaminophen 5/325 mg Tablet PO PRN ×2 (06:45→11:39)
[2018-01-16] MEDS: hydrALAZINE 25 MG TAB PO SCH (08:43)
[2018-01-16] MEDS: Nitrofurantoin Monohyd/M-Cryst 100 MG CAP PO SCH (08:44)
[2018-01-16] MEDS: Furosemide 20 MG TAB PO SCH (08:44)
[2018-01-16] MEDS: Loratadine 10 MG TAB PO SCH (08:44)
[2018-01-16] MEDS: Lisinopril 10 MG TAB PO SCH (08:44)
[2018-01-16] MEDS: Enoxaparin Sodium 40 MG/0.4 ML SYRINGE SC SCH (08:53)
[2018-01-16 15:20] VITALS: BP 126/82; TEMP 97.2
--- NOTE | 2018-01-16 23:08 | DIS ---
DATE OF ADMISSION: 01/09/2018 DATE OF DISCHARGE: 01/16/2018 PRIMARY CARE PROVIDER: Krysta Stone MD DISCHARGE DIAGNOSES: 1. Urinary tract infection. 2. Weakness. 3. Hyponatremia. CONDITION OF PATIENT ON THE DAY OF DISCHARGE: Stable. I assessed Ms. Henry on the day of discharge. She denies any chest pain or shortness of breath. Vital signs are stable. S1 and S2 are heard, re gular. Lungs are clear to auscultation bilaterally. DISCHARGE MEDICATIONS: Macrobid 100 mg 2 times a day for 4 more days, gabapentin 100 mg at bedtime, hydralazine 25 mg 3 times a day, Claritin 10 mg daily, lisinopril 10 mg daily, Lasix 20 mg 2 times a day, vitamin D3 1000 units daily, and aspirin 81 mg daily. HOSPITAL COURSE: Ms. Henry is a pleasant 82-year-old lady who was admitted to [facility] on 01/09/2018 for generalized weakness and hyponatremia. Please refer to Edenilson's histor y and physical note dated 01/09/2018 for further details. She received intravenous fluids. She was also found to have urinary tract infection with Escherichia coli, which was pansensitive. She was in itially treated with ceftriaxone, subsequently stepped down to Macrobid. Her sodium improved to 135 by 01/14/2018. She was seen by rehabilitation services. She was recommended inpatient rehabilitation versus [facility]. She was declined by her insurance for inpatient rehabilitation. Patient did not want to go to [facility]. She wanted to go home with home health. Accordingly, naz becerra is working with her to discharge her home with home health. On 01/14, she had sodium 135, potassium 3.6, creatinine 0.72, white count 5100, hemoglobin 10.8, and platelet count 242,000. She also had neuropathic pain and gabapentin was initiated. She reports that gabapentin is helping h er. She is being discharged home on 100 mg at bedtime, gabapentin dose may be titrated based on her response. DISCHARGE DESTINATION: Home. Many thanks for allowing me to participate in your patient's care. Please feel free to contact me wi th any questions or concerns.
== END 2018-01-16 16:27 | disposition home or self-care (01) ==
LOC: ERS 10:26 → T4-A 14:35 → ERS 15:49
PROVIDERS: ADMIT Internal Medicine; ATTEND Internal Medicine
DX: R53.1 Weakness (principal); N39.0 Urinary tract infection, site not specified; B96.20 Unspecified Escherichia coli [E. coli] as the cause of diseases classified elsewhere; E87.1 Hypo-osmolality and hyponatremia; I10 Essential (primary) hypertension; K59.00 Constipation, unspecified; Z79.82 Long term (current) use of aspirin; Z79.899 Other long term (current) drug therapy; Z88.5 Allergy status to narcotic agent; Z88.8 Allergy status to other drugs, medicaments and biological substances
CPT/HCPCS: 71045; 72131; 72170; 80048 ×6; 80053; 82550; 82553; 83690; 84484; 85025 ×5; 87077; 87086; 87186; 96361 ×7; 96365; 96372 ×4; 96375; 97110; 97116 ×6; 97139; 97530; 97535; 99285; G0378 ×2; G8978; G8979; G8987; G8988; 36415; 36416; 81003; 81015; A4216; J0696; J1650; J2270; J7050

== ENCOUNTER 2018-08-02 14:10 | Outpatient (CLI) | payer MEDICARE ==
--- NOTE | 2018-08-02 16:15 | RAD ---
2 VIEWS LUMBOSACRAL SPINE: Date: 08/02/18 COMPARISON: CT lumbar spine dated 01/09/18. HISTORY: Lumbar pain and radiculopathy. FINDINGS: Two views of the lumbosacral spine show Grade I anterolisthesis of L4 on L5. There is intervertebral disc space narrowing throughout the lumbar spine, greatest at L3-4. Severe posterior facet arthrosis is seen in the lower lumbosacral spine. There is scoliotic curvature of the lumbar spine likely secon caitie to degenerative change. IMPRESSION: Severe degenerative changes of the lumbar spine with anterolisthesis of L4 on L5. POS: JOHN
== END 2018-08-02 14:11 | disposition home or self-care (01) ==
LOC: SCSRAD 14:10
PROVIDERS: ATTEND Surgery
DX: M47.26 Other spondylosis with radiculopathy, lumbar region (principal); M43.16 Spondylolisthesis, lumbar region
CPT/HCPCS: 72100

== ENCOUNTER 2018-08-13 06:54 | Outpatient (CLI) | payer MEDICARE ==
--- NOTE | 2018-08-13 13:26 | RAD ---
F4 views of lumbar spine: 08/13/2018 COMPARISON: 08/02/2018 HISTORY: Preoperative patient, lumbar radiculopathy FINDINGS: There is mild upper lumbar spine levoscoliosis and mild mid lumbar spine dextroscoliosis. M oderate degenerative changes of bilateral sacroiliac joints noted, right greater than left. Partially visualized right hip arthroplasty. At L1-2 there is disc space narrowing and right lateral osteophyte formation. At L3-4 there is left l ateral disc space narrowing and degenerative endplate change with lateral osteophytosis. The lateral exam demonstrates disc space narrowing with anterior osteophyte formation at T10-11, T11- 12, T12-L1, and L1-2. Disc space narrowing and degenerative endplate change present at L3-4. Prominent L4-5 and L5-S1 facet hypertrophic change. Anterolisthesis of L4 on L5 measures 8 mm on neutral imaging, 9 mm on flexion i maging, and 7 mm on extension imaging. IMPRESSION: Prominent multilevel degenerative change within the lumbar spine as detailed above.
[2018-08-13 14:01] LABS: Hemoglobin 12.4 g/dL (12.0-16.0); Mean Corpuscular HGB CONC 33.6 g/dL (32.0-36.0); Mean Corpuscular Hemoglobin 31.6 pg (27.0-31.0); Mean Corpuscular Volume 93.9 fL (78.0-98.0); Mean Platelet Volume 6.9 fL (7.4-10.4); Platelet Count 257 thou/uL (130-400); RBC Distribution Width 12.6 % (11.5-14.5); Red Blood Cell (RBC) Count 3.92 mill/uL (4.20-5.40); White Blood Cell (WBC) Count 5.1 thou/uL (4.8-10.8)
[2018-08-13 14:06] LABS: INR-International Normal Ratio 1.1; PTT 30.1 SEC (22.9-36.1); Prothrombin Time 13.9 SEC (12.0-14.7)
[2018-08-13 14:13] LABS: Anion Gap 13 mmol/L (10-20); BUN (Urea Nitrogen) 14 mg/dL (9.8-20.1); Calc. Creatinine Clearance 0 mL/min (70-130); Calcium 9.2 mg/dL (7.8-10.44); Carbon Dioxide 27 mmol/L (23-31); Chloride 92 mmol/L (98-107); Estimated GFR-MDRD 80; Glucose 84 mg/dL (83-110); Potassium 4.6 mmol/L (3.5-5.1); Sodium 127 mmol/L (136-145)
--- NOTE | 2018-08-13 21:27 | EKG ---
Test Reason : Blood Pressure : / mmHG Vent. Rate : 058 BPM Atrial Rate : 058 BPM P-R Int : 210 ms QRS Dur : 096 ms QT Int : 436 ms P-R-T Axes : 058 002 070 degrees QTc Int : 428 ms Sinus bradycardia with 1st degree A-V block Low voltage QRS Cannot rule out Anterior infarct (cited on or before 28-JUN-2013) Abnormal ECG When compared with ECG of 15-APR-2014 12:36, No significant change was found Confirmed by MARY SY, . SVelia (4) on 08/13/2018 9:26:45 PM Referred By: RENETTA Confirmed By:DR. Elizabeth HERNANDEZ MD
== END 2018-08-13 06:55 | disposition home or self-care (01) ==
LOC: LABBT 06:54
PROVIDERS: ATTEND Surgery
DX: Z01.818 Encounter for other preprocedural examination (principal); M48.061 Spinal stenosis, lumbar region without neurogenic claudication; M47.26 Other spondylosis with radiculopathy, lumbar region
CPT/HCPCS: 72110; 80048; 85027; 85610; 85730; 93005; 93010

== ENCOUNTER 2018-08-20 09:37 | Observation (INO) | payer MEDICARE ==
[2018-08-20] MEDS ORDERED: Morphine 2 MG/ML SYRINGE ONE (11:31)
[2018-08-20] MEDS ORDERED: Bacitracin Zinc Ointment 30 gm TUBE ONE (12:49)
[2018-08-20] MEDS ORDERED: Sodium Chloride 0.9% 10 ML ONE (12:49)
[2018-08-20] MEDS ORDERED: Thrombin 5000 UNITS/5 ML VIAL ONE (12:49)
[2018-08-20] MEDS ORDERED: Ondansetron PF 4 MG/2 ML Vial ONE (12:53)
[2018-08-20] MEDS ORDERED: PHENYLEPHRINE-NS 100 MCG/ML 10 ML SYRINGE ONE (12:53)
[2018-08-20] MEDS ORDERED: PROPOFOL 200 MG/20 ML VIAL ONE (12:53)
[2018-08-20] MEDS ORDERED: Lidocaine 1% PF 5 ML VIAL ONE (12:53)
[2018-08-20] MEDS ORDERED: ePHEDrine 50 MG/ML VIAL ONE (12:53)
[2018-08-20] MEDS ORDERED: Rocuronium Bromide 10 MG/ML (10ML VIAL) ONE (12:53)
[2018-08-20] MEDS ORDERED: Glycopyrrolate 0.2 MG/ML 5 ML SYRINGE ONE (12:53)
[2018-08-20] MEDS ORDERED: Ketamine 50 MG/ML (10ML VIAL) ONE (14:20)
[2018-08-20] MEDS ORDERED: HYDROmorphone 2 MG/ML VIAL ONE ×2 (15:46→17:57)
[2018-08-20] MEDS ORDERED: HYDROmorphone 2 MG/ML VIAL SLOW IVP PRN (16:29)
[2018-08-20] MEDS ORDERED: Ondansetron HCl/PF 4 MG/2 ML Vial IVP PRN (16:29)
[2018-08-20] MEDS ORDERED: Promethazine HCl 25 MG/ML VIAL SLOW IVP PRN (16:29)
[2018-08-20] MEDS ORDERED: PACU-Morphine 4MG/ML VIAL SLOW IVP PRN (16:29)
[2018-08-20] MEDS ORDERED: Meperidine HCl/PF 25 MG/ML VIAL SLOW IVP PRN (16:29)
[2018-08-20] MEDS ORDERED: Morphine Sulfate 2 MG/ML SYRINGE SLOW IVP PRN (16:29)
[2018-08-20] MEDS ORDERED: Promethazine HCl 25 MG/ML VIAL IM PRN (16:29)
[2018-08-20] MEDS ORDERED: Acetaminophen 325 MG TAB PO PRN (17:00)
[2018-08-20] MEDS ORDERED: Promethazine HCl 25 MG/ML VIAL IVPB PRN (17:00)
[2018-08-20] MEDS ORDERED: Mag-Al 1200 mg/1200 mg/30 ML UDCUP PO PRN (17:00)
[2018-08-20] MEDS ORDERED: Morphine 4 MG/ML VIAL ONE ×2 (17:23→17:40)
[2018-08-20] MEDS ORDERED: CEFAZOLIN 2 GM in Premix Bag 1 BAG IVPB SCH (18:00)
[2018-08-20] MEDS ORDERED: Promethazine HCl 25 MG/ML VIAL ONE (18:20)
[2018-08-20] MEDS: CEFAZOLIN 2 GM in Premix Bag 1 BAG IVPB SCH (22:12)
[2018-08-20] MEDS: HYDROcodone/Acetaminophen 7.5/325 mg Tablet PO PRN (22:13)
[2018-08-20] MEDS: diphenhydrAMINE 50 MG CAP PO SCH ×4 (22:13→22:23)
[2018-08-20] MEDS: Gabapentin 100 MG CAP PO SCH (22:13)
[2018-08-20] MEDS: Atorvastatin Calcium 40 MG TAB PO SCH (22:13)
[2018-08-20] MEDS: Sodium Chloride 0.9% 1,000 ML IV SCH (22:14)
[2018-08-20 22:35] VITALS: BMI 32.1
[2018-08-20] MEDS: Morphine 2 MG/ML SYRINGE SLOW IVP PRN (23:40)
[2018-08-20] MEDS: Promethazine HCl 12.5 MG in Sodium Chloride 0.9% 50 ML IVPB PRN (23:41)
[2018-08-21] MEDS: Acetaminophen/Codeine 30-300mg Tablet PO PRN ×3 (03:34→18:37)
[2018-08-21] MEDS: CEFAZOLIN 2 GM in Premix Bag 1 BAG IVPB SCH (05:40)
[2018-08-21] MEDS: Sodium Chloride 0.9% 1,000 ML IV SCH ×2 (05:41→19:27)
[2018-08-21] MEDS: Lisinopril 20 MG TAB PO SCH (08:54)
[2018-08-21] MEDS: Loratadine 10 MG TAB PO SCH (08:54)
[2018-08-21] MEDS: Furosemide 20 MG TAB PO SCH (08:54)
[2018-08-21] MEDS ORDERED: Non-Formulary Item 1 EACH (Cetirizine Hcl [Zyrtec] 10 MG) PO SCH (09:00)
--- NOTE | 2018-08-21 09:37 | PRG ---
DATE OF SERVICE: 08/21/2018 DICTATED FOR: Jose Carlos Ross MD SUBJECTIVE: Ms. Henry is now postoperative day #1, having undergone multiple level lumbar laminectomies. She states she is feeling well today. She has had improvement in back pain and does not have any radicular complaints at this time. She has been walking to the bathroom once and is not sure if she feels more steady on her feet at this time. She has good strength in the bilateral lower extremities. PLAN: She maybe discharged later today; however, likely may need one more overnight stay to work with therapies, become more steady on her feet. We will check back on her at lunchtime, but she likely will be here another overnight. Please call with any changes in the patient's neurologic status. Job ID: [id number]
--- NOTE | 2018-08-21 09:48 | PRG ---
DATE OF SERVICE: 08/21/2018 Ms. Henry is doing well, postoperative L3-L5 laminectomy. She states her leg pain has improved compared to before surgery. We will plan to mobilize her more today possible dismissal later today, but she may need more time for recovery given her age of 83. Job ID: [id number]
--- NOTE | 2018-08-21 10:05 | OP ---
DATE OF PROCEDURE: 08/20/2018 FIRMWARE SOFTWARE VERIFICATION ENGINEER: Francisco Rivera PA-C PREOPERATIVE DIAGNOSIS: Lumbar stenosis with low back and leg pain. POSTOPERATIVE DIAGNOSIS: Lumbar stenosis with low back and leg pain. PROCEDURES PERFORMED: L3-L4 and L4-L5 laminectomies, partial facetectomies, and foraminotomies. DESCRIPTION OF PROCEDURE: After informed consent was obtained from the patient, the patient was brought to the OR. Proper patient, pause, and identification were carried out. She was placed under excellent general endotracheal anesthesia and positioned prone on the OR table. All appropriate points were padded. We identified the L3 through L5 dorsal spines, and a linear kristin was made. This area was sterilely cleansed, prepared, and draped. Proper patient, pause, and identification were carried out. The wound was then opened with a combination of sharp, monopolar, and blunt dissection. We exposed the L3, L4, and L5 segments, and localization film confirmed area of interest. We then performed L3, L4, and L5 laminectomies, partial facetectomies, and foraminotomies. There was a small area of partial thickness opening and the dura, but no evidence of CSF leak. We had excellent decompression of common dural tube. Copious irrigation occurred throughout as did maximizing hemostasis. The wound was then closed in anatomic layers following the use of DuraSeal and sprinkling of vancomycin powder. The patient then emerged from anesthesia. Job ID: [id number]
[2018-08-21] MEDS: tiZANidine HCl 4 MG TAB PO PRN ×2 (14:11→20:52)
[2018-08-21] MEDS: traMADol HCl 50 MG TAB PO PRN (14:11)
[2018-08-21] MEDS: Atorvastatin Calcium 40 MG TAB PO SCH (20:48)
[2018-08-21] MEDS: Gabapentin 100 MG CAP PO SCH (20:48)
[2018-08-21] MEDS: diphenhydrAMINE 50 MG CAP PO SCH (20:49)
[2018-08-22] MEDS: Acetaminophen/Codeine 30-300mg Tablet PO PRN (01:17)
[2018-08-22] MEDS: tiZANidine HCl 4 MG TAB PO PRN ×3 (04:39→21:03)
[2018-08-22] MEDS: HYDROcodone/Acetaminophen 7.5/325 mg Tablet PO PRN ×2 (09:13→17:31)
[2018-08-22] MEDS: Loratadine 10 MG TAB PO SCH (09:13)
[2018-08-22] MEDS: Furosemide 20 MG TAB PO SCH (09:14)
[2018-08-22] MEDS: Lisinopril 20 MG TAB PO SCH (09:14)
[2018-08-22] MEDS: Sodium Chloride 0.9% 1,000 ML IV SCH ×2 (09:14→22:24)
--- NOTE | 2018-08-22 11:29 | PRG ---
DATE OF SERVICE: 08/22/2018 This is Francisco Rivera PA-C dictating a report for Jose Carlos Ross MD. Postoperative recheck. Calr is now postoperative day #2 having undergone multilevel lumbar laminectomies. She complains of significant incisional back pain, but otherwise has some aching into the legs that is nonradicular. She states her leg pain still remains improved compared to her preoperative leg pain. She has been walking to the bathroom with a walker, but otherwise her mobility has been limited secondary to pain. She also has low oxygen status and therefore, we will attempt to limit her narcotics. I have placed a therapy consult as well as inpatient rehab consult as she may benefit from this. Hopefully, she can discharge tomorrow, but we must work on adequate pain control. She remains with good strength in the bilateral lower extremities. Please call with any changes in patient's neurologic status. Job ID: [id number]
[2018-08-22] MEDS: traMADol HCl 50 MG TAB PO PRN ×2 (11:51→21:04)
[2018-08-22] MEDS: diphenhydrAMINE 50 MG CAP PO SCH (21:03)
[2018-08-22] MEDS: Gabapentin 100 MG CAP PO SCH (21:03)
[2018-08-22] MEDS: Atorvastatin Calcium 40 MG TAB PO SCH (21:03)
[2018-08-23] MEDS: HYDROcodone/Acetaminophen 7.5/325 mg Tablet PO PRN ×4 (01:06→23:04)
[2018-08-23] MEDS: traMADol HCl 50 MG TAB PO PRN ×2 (04:01→18:08)
[2018-08-23] MEDS: tiZANidine HCl 4 MG TAB PO PRN ×3 (04:01→20:38)
[2018-08-23] MEDS: Loratadine 10 MG TAB PO SCH (09:19)
[2018-08-23] MEDS: Milk Of Magnesia 30 ML UDCUP PO PRN ×2 (09:19→20:38)
[2018-08-23] MEDS: Lisinopril 20 MG TAB PO SCH (09:19)
[2018-08-23] MEDS: Furosemide 20 MG TAB PO SCH (09:19)
--- NOTE | 2018-08-23 13:18 | PRG ---
DATE OF SERVICE: 08/23/2018 Ms. Henry is postoperative day #3 from lumbar decompression. She states she has had resolution in her leg pain, but as expected incisional pain. We have made arrangements for transfer to rehab and hopefully that will occur today. Job ID: [id number]
[2018-08-23] MEDS: Sodium Chloride 0.9% 1,000 ML IV SCH (14:58)
[2018-08-23] MEDS: Acetaminophen/Codeine 30-300mg Tablet PO PRN (18:07)
[2018-08-23] MEDS: diphenhydrAMINE 50 MG CAP PO SCH (20:38)
[2018-08-23] MEDS: Atorvastatin Calcium 40 MG TAB PO SCH (20:38)
[2018-08-23] MEDS: Gabapentin 100 MG CAP PO SCH (20:38)
[2018-08-24] MEDS: Sodium Chloride 0.9% 1,000 ML IV SCH ×2 (00:05→15:05)
[2018-08-24] MEDS ORDERED: Acetaminophen/Codeine 30-300mg Tablet PO PRN (01:21)
[2018-08-24] MEDS: tiZANidine HCl 4 MG TAB PO PRN ×3 (05:25→20:43)
[2018-08-24] MEDS: HYDROcodone/Acetaminophen 7.5/325 mg Tablet PO PRN (05:25)
[2018-08-24] MEDS ORDERED: Milk Of Magnesia 30 ML UDCUP PO PRN (07:36)
--- NOTE | 2018-08-24 07:57 | PRG ---
DATE OF SERVICE: 08/24/2018 SUBJECTIVE: I saw Elisabeth Henry in her hospital room this morning. Yesterday, she got literature on [facility] and arrangements are being made for her to be transferred there. She is happy with that decision. Ms. Henry had a good night. She was sleeping soundly when I came in the room, but wakes easily. She does not complain of any discomfort in the legs, but her back is sore. I do not see any fevers recorded overnight. Her blood pressures have been in the 140s to 170s. Her neurological function in lower extremities is quite good. Dressing is dry. ASSESSMENT AND PLAN: Ms. Henry has a place to go via transfer today. We will make sure the paperwork is ready for that. Followup arrangements have already been made. I went over wound care and activity restrictions. Job ID: [id number]
[2018-08-24] MEDS ORDERED: Lisinopril 20 MG TAB PO SCH (09:00)
[2018-08-24] MEDS: Furosemide 20 MG TAB PO SCH (09:26)
[2018-08-24] MEDS: Loratadine 10 MG TAB PO SCH (09:26)
[2018-08-24] MEDS: Acetaminophen/Codeine 30-300mg Tablet PO PRN ×3 (09:27→19:04)
[2018-08-24] MEDS: Bisacodyl 10 MG SUPP PR PRN (14:40)
[2018-08-24] MEDS: Gabapentin 100 MG CAP PO SCH (20:43)
[2018-08-24] MEDS: Atorvastatin Calcium 40 MG TAB PO SCH (20:43)
[2018-08-24] MEDS: diphenhydrAMINE 50 MG CAP PO SCH (20:44)
[2018-08-25] MEDS: Morphine 2 MG/ML SYRINGE SLOW IVP PRN (02:38)
[2018-08-25] MEDS: Promethazine HCl 12.5 MG in Sodium Chloride 0.9% 50 ML IVPB PRN (02:47)
[2018-08-25] MEDS: Sodium Chloride 0.9% 1,000 ML IV SCH ×2 (07:08→16:43)
[2018-08-25] MEDS ORDERED: hydrALAZINE 10 MG TAB PO PRN (08:00)
[2018-08-25] MEDS: Loratadine 10 MG TAB PO SCH (09:22)
[2018-08-25] MEDS: Acetaminophen/Codeine 30-300mg Tablet PO PRN ×2 (09:22→16:36)
[2018-08-25] MEDS: tiZANidine HCl 4 MG TAB PO PRN ×2 (09:22→16:36)
[2018-08-25] MEDS: Furosemide 20 MG TAB PO SCH (09:22)
[2018-08-25] MEDS: Lisinopril 10 MG TAB PO SCH (10:18)
--- NOTE | 2018-08-25 10:39 | PRG ---
DATE OF SERVICE: 08/25/2018 I saw Elisabeth Henry in her hospital room this morning. She is anticipating discharge to the [facility] inpatient rehabilitation unit, but her insurance does not cover that. Social work had to backtrack and start reforming the plan for home health at discharge that has not been finalized yet. Ms. Henry has no other complaints. Overnight, she had T-max of 99.6 recorded, blood pressures have been in the 150s to 160s. On examination, I do not find any new neurological deficit. Ms. Henry ambulated with assistance today. Once ensure that she is safe for her activities of daily living and once she meets that criteria, she can be discharged home. Home health will hopefully be arranged by tomorrow. Job ID: [id number]
[2018-08-25] MEDS: Bisacodyl 10 MG SUPP PR PRN (12:15)
[2018-08-25] MEDS: Gabapentin 100 MG CAP PO SCH (21:23)
[2018-08-25] MEDS: diphenhydrAMINE 50 MG CAP PO SCH (21:23)
[2018-08-25] MEDS: Atorvastatin Calcium 40 MG TAB PO SCH (21:23)
[2018-08-25] MEDS: traMADol HCl 50 MG TAB PO PRN (21:42)
[2018-08-26] MEDS: HYDROcodone/Acetaminophen 7.5/325 mg Tablet PO PRN ×4 (00:01→20:45)
[2018-08-26] MEDS: tiZANidine HCl 4 MG TAB PO PRN ×3 (00:01→23:35)
[2018-08-26] MEDS: Sodium Chloride 0.9% 1,000 ML IV SCH ×2 (07:28→18:50)
[2018-08-26] MEDS ORDERED: Mag-Al 1200 mg/1200 mg/30 ML UDCUP PO PRN (08:07)
[2018-08-26] MEDS ORDERED: Acetaminophen 325 MG TAB PO PRN (08:07)
[2018-08-26] MEDS ORDERED: Bisacodyl 10 MG SUPP PR PRN (08:07)
[2018-08-26] MEDS ORDERED: Morphine 2 MG/ML SYRINGE SLOW IVP PRN (08:08)
[2018-08-26] MEDS ORDERED: Milk Of Magnesia 30 ML UDCUP PO PRN (08:10)
[2018-08-26] MEDS ORDERED: Promethazine HCl 12.5 MG in Sodium Chloride 0.9% 50 ML IVPB PRN (08:10)
[2018-08-26] MEDS ORDERED: Acetaminophen/Codeine 30-300mg Tablet PO PRN (08:11)
[2018-08-26] MEDS ORDERED: hydrALAZINE 10 MG TAB PO PRN (08:15)
[2018-08-26] MEDS: Lisinopril 10 MG TAB PO SCH (08:20)
[2018-08-26] MEDS: Furosemide 20 MG TAB PO SCH (09:17)
[2018-08-26] MEDS: Loratadine 10 MG TAB PO SCH (09:17)
--- NOTE | 2018-08-26 10:39 | PRG ---
DATE OF SERVICE: 08/26/2018 This is Francisco Rivera PA-C dictating a report for Jose Carlos Ross MD. Postoperative recheck. Ms. Henry is now postoperative day #6, having undergone multilevel lumbar laminectomy. The patient has somewhat improved, but continued incisional back pain but no leg pain. She has been ambulating. She has good strength in bilateral lower extremities and her lumbar wound dressing is dry. At this time, we are working on disposition. Unfortunately, I believe that her insurance has denied both inpatient rehab as well as [facility], and she may only followed by her home health physical therapy and occupational therapy. Nonetheless, she is stable for discharge and once arrangements have been made, she will be dismissed. She is pleased with this plan. Please call with any changes in the patient's neurologic status. Job ID: [id number]
[2018-08-26] MEDS: Atorvastatin Calcium 40 MG TAB PO SCH (20:46)
[2018-08-26] MEDS: diphenhydrAMINE 50 MG CAP PO SCH (20:46)
[2018-08-26] MEDS: Gabapentin 100 MG CAP PO SCH (20:47)
[2018-08-27] MEDS: HYDROcodone/Acetaminophen 7.5/325 mg Tablet PO PRN ×4 (03:17→20:53)
--- NOTE | 2018-08-27 08:10 | PRG ---
DATE OF SERVICE: 08/27/2018 SUBJECTIVE: Ms. Henry is now 1 week into her hospitalization. She is improving in regard to the leg pain. The main issue now is placement, which is for whatever reason taking longer than I had anticipated. She is in the bathroom this morning when I see her, and has no complaints. Hopefully, she will be dismissed today. Job ID: [id number]
[2018-08-27] MEDS: Lisinopril 10 MG TAB PO SCH (08:24)
[2018-08-27] MEDS: Sodium Chloride 0.9% 1,000 ML IV SCH (09:25)
[2018-08-27] MEDS: tiZANidine HCl 4 MG TAB PO PRN ×2 (10:01→20:53)
[2018-08-27] MEDS: Furosemide 20 MG TAB PO SCH (10:01)
[2018-08-27] MEDS: Loratadine 10 MG TAB PO SCH (10:02)
[2018-08-27] MEDS: Atorvastatin Calcium 40 MG TAB PO SCH (20:54)
[2018-08-27] MEDS: Gabapentin 100 MG CAP PO SCH (20:54)
[2018-08-27] MEDS: diphenhydrAMINE 50 MG CAP PO SCH (20:54)
[2018-08-28] MEDS: Sodium Chloride 0.9% 1,000 ML IV SCH ×2 (04:40→10:45)
[2018-08-28] MEDS: HYDROcodone/Acetaminophen 7.5/325 mg Tablet PO PRN ×2 (07:09→15:58)
[2018-08-28] MEDS: Furosemide 20 MG TAB PO SCH (08:55)
[2018-08-28] MEDS: Loratadine 10 MG TAB PO SCH (08:55)
[2018-08-28] MEDS: Lisinopril 10 MG TAB PO SCH (08:55)
--- NOTE | 2018-08-28 12:19 | PRG ---
DATE OF SERVICE: 08/28/2018 This is Francisco Rivera PA-C dictating a report for Jose Carlos Ross MD. This is postoperative recheck. Ms. Henry is now postoperative day #8 having undergone multilevel lumbar laminectomies. She appears very comfortable. In fact, the most comfortable I have seen her today. She does continue to have some back pain. She has intermittent left greater than right lower extremity symptoms, but states overall these are significantly improved compared to her preoperative pain. She has been up, walking with therapies with a walker. She has good strength in the bilateral lower extremities and her incision dressing is dry, although was checked yesterday, and there is no dehiscence or significant drainage from the incision. I completed a peer to peer with her insurance company in regard to acceptance to inpatient rehab versus [facility], and at this time, the patient medically does not qualify for inpatient rehab, though she does for [facility]. BARBARA has been in close contact with Case Management as well and they will attempt to get her arranged to go to [facility] hopefully as early as today. Nonetheless, we will continue to monitor the patient, but she is stable for discharge from neurosurgical standpoint. Please call with any changes in the patient's neurologic status. Job ID: [id number]
[2018-08-28 12:26] VITALS: TEMP 98.3
[2018-08-28] MEDS: tiZANidine HCl 4 MG TAB PO PRN (13:14)
[2018-08-28 15:57] VITALS: BP 162/83
== END 2018-08-28 18:03 | disposition home health service (06) ==
LOC: SDC 09:37 → SURG A 09:37 → SDC 18:39 → SURG A 08-24 17:47 → SDC 08-24 17:47 → SURG A 08-28 10:13
PROVIDERS: ADMIT Surgery; ATTEND Surgery
PROC: 01NB0ZZ Release Lumbar Nerve, Open Approach (ICD-10-PCS; principal; 2018-08-20)
DX: M48.061 Spinal stenosis, lumbar region without neurogenic claudication (principal); M19.90 Unspecified osteoarthritis, unspecified site; I10 Essential (primary) hypertension; G89.18 Other acute postprocedural pain; Z85.038 Personal history of other malignant neoplasm of large intestine; Z79.02 Long term (current) use of antithrombotics/antiplatelets; Z79.82 Long term (current) use of aspirin; Z79.899 Other long term (current) drug therapy; Z88.5 Allergy status to narcotic agent; Z88.8 Allergy status to other drugs, medicaments and biological substances
CPT/HCPCS: 63047; 63048 ×2; 76000; 96374; 96375; 97110 ×3; 97116 ×6; 97139 ×7; 97530 ×2; G0378 ×2; J0131; J0690; J1170; J2001; J2270; J2405; J2550; J2704; J3370; J3490; J7050; Q0153

== ENCOUNTER 2021-05-02 09:06 | Outpatient (CLI) | payer MEDICARE | END 2021-05-02 09:07 | disposition home or self-care (01) | LOC: SCSMRI 09:06 | PROVIDERS: ATTEND Surgery | DX: M47.26 Other spondylosis with radiculopathy, lumbar region (principal); M41.9 Scoliosis, unspecified; Z98.890 Other specified postprocedural states | CPT/HCPCS: 72120; 72148 ==